=== PATIENT | male | born 1990 | race Hispanic/Latino ===

== ENCOUNTER 2021-11-04 18:30 | Emergency (ER) | payer OTHER, SELFPAY ==
[2021-11-04 18:48] VITALS: BP 159/89; PULSE 85; RESP 19; TEMP 36.8; O2SAT 98; BMI 43.8
--- NOTE | 2021-11-04 22:20 | ED.DENTAL ---
HPI - Dental/Oral General Chief complaint: Dental/Oral Stated complaint: Tooth pain, swollen L side of face Time Seen by Provider: 11/04/21 22:20 Source: patient Mode of arrival: Family Vehicle Limitations: no limitations History of Present Illness HPI Narrative: This is a 31-year-old male with no known medical issues who presents with swelling of the left side of his face. He states yesterday he was playing with 1 of his teeth which is loose and then overnight developed swelling of the face there is some fullness next to the nose on the left side of the face and cheek. Patient states it is very mildly tender but not significantly. He denies fevers or chills. No swelling of the tongue, lips or airway, no difficulty with speech, no changes to voice, no difficulty with swallowing. Patient has not had similar in the past. He denies any dental pain. Denies any radiation to the ear or neck pain. No difficulty with movement of his neck. Patient denies any chest pain, shortness of breath, nausea vomiting other GI or urinary symptoms. He does smoke daily, occasional alcohol, no illicit he does vape as well. Related Data Previous Rx's Medication Instructions Recorded clindamycin HCl 300 mg capsule 300 mg PO Q6H 7 days #28 caps 11/04/21 Allergies Allergy/AdvReac Type Severity Reaction Status Date / Time No Known Drug Allergies Allergy Verified 11/04/21 18:54 Review of Systems Review of Systems ROS Unobtainable: All systems reviewed & are unremarkable except as noted in HPI and below Patient History Social History Smoking Status: Current every day smoker Smoking Status: Current every day smoker tobacco type: cigarettes alcohol intake frequency: 0-2 drinks per day Substance Use Type: does not use Exam Narrative Exam Narrative: GEN: well nourished, well appearing male, alert and oriented x 3, patient appears to be in mild distress. HEENT: Atraumatic, pupils are equal round reactive to light, extraocular movements are intact, nares are clear, TMs are clear with no fluid, there is no conjunctival pallor. Throat is clear without any exudates, erythema, tonsillar enlargement or uvular deviation, patient has swelling of the right cheek with fullness of the cheek towards the nasal labial fold, there is some slight fullness adjacent to the nose but no clear abscess or induration, some slight erythema. No orbital involvement. Patient does not have any lips or oropharyngeal involvement. Normal speech, no issues with secretions. HEART: Regular rate and rhythm without murmur, clicks, rubs. LUNGS:Lungs clear to auscultation, no wheezes, rales, crackles, chest moves symmetrically ABD:bowel sounds normal, soft, non-tender, no guarding, rebound, rigidity, no masses noted, no hepatosplenomegaly MSCL: Non-tender, no muscle atrophy, muscles strength 5/5 upper and lower extremities, full range of motion, normal gait NEURO:CN 2-12 intact, sensation normal SKIN: Please see above Initial Vital Signs Initial Vital Signs: Vital Signs Temperature 98.2 F 11/04/21 18:48 Pulse Rate 85 11/04/21 18:48 Respiratory Rate 19 11/04/21 18:48 Blood Pressure 159/89 H 11/04/21 18:48 Pulse Oximetry 98 11/04/21 18:48 Oxygen Delivery Method 11/04/21 18:48 Course Orders Ordered: Discontinued Medications Clindamycin HCl (Clindamycin 150 Mg Capsule) 300 mg PO NOW ONE Stop: 11/04/21 22:29 Last Admin: 11/04/21 22:38 Dose: 300 mg Documented By: KP Vital Signs Vital signs: Vital Signs - 8 hr 11/04/21 22:42 Pulse Rate 72 Respiratory Rate 18 Blood Pressure 137/77 Pulse Oximetry 98 Oxygen Delivery Method Room Air MDM - Dental/Oral MDM Narrative Medical decision making narrative: This is a 31-year-old male comes emergency department with complaint of swelling left side of face. Patient states he was playing with a broken tooth and developed increasing swelling. Plan for oral antibiotic he has some localized facial cellulitis warm compresses and strict return precautions. Patient does not appear to have any other dental pain but likely this is the source of his infection. Discharge Plan Departure Patient Disposition: Home Clinical Impression: Cellulitis of face Instructions: DI for Cellulitis -- Adult Activity Restrictions/Additional Instructions: You have an skin of your face called cellulitis. Take antibiotics until completely gone. You can take Tylenol up to a 1000 mg every 6 hours and/or ibuprofen up to 600 mg every 6 hours for pain. Use warm compresses to the affected and swelling 3-4 times daily. Prescription sent to [facility] in [place]. Please return for fevers, rapidly worsening swelling, swelling of the, lips or tongue, airway, if you have changes to voice, if redness or swelling or spreading to her neck or elsewhere or other new or concerning symptoms Prescriptions: New clindamycin HCl 300 mg capsule 300 mg PO Q6H 7 Days Qty: 28 0RF Visit Report Forms: Patient Portal/API
[2021-11-04] MEDS: CLINDAMYCIN 150 MG CAPSULE 300 MG PO (22:38)
[2021-11-04 22:42] VITALS: BP 137/77; PULSE 72; RESP 18; O2SAT 98
== END 2021-11-04 22:43 | disposition home or self-care (01) ==
PROVIDERS: Emergency Provider Emergency Medicine
DX: L03.211 Cellulitis of face (principal)
CPT/HCPCS: 99283